=== PATIENT | female | born 1985 | race Caucasian/White ===

== ENCOUNTER → 2016-09-19 | Outpatient (CLI) | payer OTHER ==
[~2016-09-19] MED LIST: DIPH1TAB25 PO; FLC150T PO; ONDA-42 PO
--- NOTE | 2016-09-19 17:31 | Diagnostic Imaging Report ---
EXAM: US NON OB PELVIS COMP/TRANSVAG INDICATION: IUD STRINGS LOST T83.39XA COMPARISON: None. FINDINGS: Intrauterine device within the expected position. Mixed hypoechoic mass in the left uterus measuring up to 2.5 cm, presumed uterine fibroid. No endometrial mass or fluid collection. The uterus measures 5.6 x 4.6 x 4.1 cm. The endometrium is 10 mm in thickness. The right ovary measures 2.4 x 1.7 x 1.7 cm. The left ovary measures 3.7 x 2.9 x 1.3 cm. Normal flow within both ovaries by color Doppler. No free fluid in the pelvis. IMPRESSION: 1. Intrauterine device within the expected position. 2. Mixed hypoechoic mass in the uterus likely represents a fibroid. 3. No free fluid in the pelvis. Dictated by: Dictated on workstation # [id number]
== END ==
LOC: RAD 15:33
PROVIDERS: ATTEND Obstetrics & Gynecology
DX: T83.39XA Other mechanical complication of intrauterine contraceptive device, initial encounter (principal); N85.9 Noninflammatory disorder of uterus, unspecified
CPT/HCPCS: 76830; 76856

== ENCOUNTER 2021-05-19 09:44 | Outpatient (RCR) | payer BC | END 2021-05-24 | disposition home or self-care (01) | DX: M77.11 Lateral epicondylitis, right elbow (principal) ==

== ENCOUNTER 2021-06-17 15:33 | Outpatient (RCR) | payer BC | END 2021-06-24 | disposition home or self-care (01) | DX: M77.11 Lateral epicondylitis, right elbow (principal) ==

== ENCOUNTER → 2023-01-27 | Outpatient (CLI) | payer BC, OTHER ==
--- NOTE | 2023-01-27 18:02 | Diagnostic Imaging Report ---
INDICATION: 6 month followup of right breast cysts. COMPARISON: Correlation is made with an outside ultrasound performed at [facility] on 07/13/2022. FINDINGS: The previous ultrasound did show numerous cysts, many of which appeared to be complicated from the 9 to 12 o'clock location. There was also a complicated cyst at the 2 o'clock location. On today's study, the majority of the cysts has resolved. There is a small residual cluster at the 10 o'clock location 3 cm from the nipple, in aggregate measuring 1.1 x 0.9 x 0.7 cm. No solid masses are detected. IMPRESSION: The majority of the right breast cysts seen previously has resolved. There is a residual cluster at the 10 o'clock location. No other significant abnormality is detected. ACR BI-RADS Category 2: Benign findings. Dictated by: Dictated on workstation # [id number]
== END ==
LOC: RAD 13:16
PROVIDERS: ATTEND Obstetrics & Gynecology
DX: N60.01 Solitary cyst of right breast (principal)